=== PATIENT | female | born 1980 | race African-American/Black ===

== ENCOUNTER → 2021-03-02 | Outpatient (CLI) | payer OTHER ==
[2021-03-02 11:52] LABS: BASO % 0.3 % (0.0-1.0); EOS # 0.1 10^3/uL (0.0-0.5); EOS % 1.5 % (0.0-3.0); HEMATOCRIT 43.9 % (36.0-47.0); HEMOGLOBIN 14.3 g/dl (12.0-15.5); LYMPH # 1.8 10^3/uL (1.5-5.0); LYMPH % 45.3 % (24.0-44.0); MEAN CORPUSCULAR HGB CONC 32.6 g/dl (32.0-36.5); MEAN CORPUSCULAR VOLUME 86.1 fl (80.0-96.0); MONO # 0.3 10^3/uL (0.0-0.8); MONO % 8.3 % (2.0-8.0); NEUTROPHILS # 1.8 10^3/uL (1.5-8.5); NEUTROPHILS % 44.3 % (36.0-66.0); PLATELET COUNT, AUTOMATED 251 10^3/uL (150-450)
[2021-03-02 12:18] LABS: C REACTIVE PROTEIN QUANTITATIV < 0.30 MG/DL (0.00-0.30); RHEUMATOID FACTOR QUANT < 10.0 IU/ML (<15.0); URIC ACID 4.5 MG/DL (2.6-6.0)
[2021-03-02 12:19] LABS: ERYTHROCYTE SEDIMENTATION RATE 12 mm/hr (0-20)
== END ==
LOC: M LAB 10:47
PROVIDERS: ATTEND Physician Assistant Surgical
DX: M54.16 Radiculopathy, lumbar region (principal)

== ENCOUNTER → 2021-03-30 | Outpatient (CLI) | payer OTHER ==
--- NOTE | 2021-03-30 14:40 | REP ---
INDICATION: SACROILIITIS. COMPARISON: None. TECHNIQUE: 3T multiplanar MRI imaging of the sacroiliac joints was obtained using various sequences. FINDINGS: There is no abnormal SI joint fluid. There is no abnormal signal seen on the sacral or iliac side of either SI joint. The SI joints are non fused. There is a tiny nonspecific focus of T2 hyper signal seen abutting the posteroinferior left ilium outside the SI joint. This is seen bilaterally and almost symmetrically. There is no evidence of a mass or mass effect. There is a small amount of free fluid in the pelvis which is likely physiologic. IMPRESSION: There is no evidence of an SI joint abnormality. Findings as described above. <Electronically signed by Nick Sanderson > 03/30/21 [id number]
== END ==
LOC: M PLAIMG 12:17
PROVIDERS: ATTEND Physician Assistant Surgical
DX: M46.1 Sacroiliitis, not elsewhere classified (principal)

== ENCOUNTER 2021-05-07 09:15 | Emergency (ER) | payer OTHER ==
[~2021-05-07] VITALS: Ht 167.6 cm; Wt 70.0 kg
[2021-05-07 09:20] VITALS: BP 148/78
== END 2021-05-07 11:27 | disposition home or self-care (01) ==
LOC: M ED 09:15
DX: M79.661 Pain in right lower leg (principal); Z86.711 Personal history of pulmonary embolism; Z88.5 Allergy status to narcotic agent; Z88.6 Allergy status to analgesic agent; Z79.899 Other long term (current) drug therapy

== ENCOUNTER 2021-05-11 15:58 | Emergency (ER) | payer OTHER ==
[~2021-05-11] VITALS: Ht 167.6 cm; Wt 71.3 kg
[2021-05-11] MEDS ORDERED: ACETAMINOPHEN 500 MG TAB PO ONE (19:20)
[2021-05-11] MEDS ORDERED: LIDOCAINE 4% CREAM 5GM (LMX4) TOP ONE (19:20)
[2021-05-11 19:48] LABS: BASO % 0.4 % (0.0-1.0); EOS # 0.1 10^3/uL (0.0-0.5); EOS % 1.9 % (0.0-3.0); HEMATOCRIT 44.3 % (36.0-47.0); HEMOGLOBIN 14.5 g/dl (12.0-15.5); LYMPH # 2.5 10^3/uL (1.5-5.0); LYMPH % 50.7 % (24.0-44.0); MEAN CORPUSCULAR HEMOGLOBIN 28.3 pg (27.0-33.0); MEAN CORPUSCULAR HGB CONC 32.7 g/dl (32.0-36.5); MEAN CORPUSCULAR VOLUME 86.4 fl (80.0-96.0); MONO # 0.4 10^3/uL (0.0-0.8); MONO % 7.9 % (2.0-8.0); NEUTROPHILS # 1.9 10^3/uL (1.5-8.5); NEUTROPHILS % 39.1 % (36.0-66.0); PLATELET COUNT, AUTOMATED 249 10^3/uL (150-450); RED BLOOD COUNT 5.13 10^6/uL (4.00-5.40); WHITE BLOOD COUNT 4.8 10^3/uL (4.0-10.0)
[2021-05-11 20:10] LABS: INR 0.99; PARTIAL THROMBOPLASTIN TIME 26.6 SECONDS (25.9-37.0); PROTHROMBIN TIME 13.5 SECONDS (12.7-14.5)
[2021-05-11 20:13] LABS: D-DIMER QUANT 2760.71 ng/ml (<500)
[2021-05-11 21:22] LABS: ERYTHROCYTE SEDIMENTATION RATE 12 mm/hr (0-20)
[2021-05-11] MEDS ORDERED: ISOVUE-370 76% 100ML VIAL As Ordered ONE (21:29)
[2021-05-11] MEDS ORDERED: XARE15TA PO (22:28)
[2021-05-11] MEDS ORDERED: RIVAROXABAN 15 MG TAB (XARELTO) PO ONE (22:45)
[2021-05-11 22:51] VITALS: BP 121/68
== END 2021-05-11 22:53 | disposition home or self-care (01) ==
LOC: M ED 15:58
DX: I26.99 Other pulmonary embolism without acute cor pulmonale (principal); Z88.5 Allergy status to narcotic agent; Z79.01 Long term (current) use of anticoagulants
CPT/HCPCS: 36415; 71275; 82550; 85025; 85379; 85610; 85652; 85730; 86140; 93971; 99284; Q9967

== ENCOUNTER → 2021-09-01 | Outpatient (CLI) | payer OTHER ==
[~2021-09-01] MED LIST: XARE15TA PO; XARE20TA PO
== END ==
LOC: M RAD 14:53
PROVIDERS: ATTEND Internal Medicine
DX: M25.551 Pain in right hip (principal)